=== PATIENT | female | born 1960 | race Caucasian/White ===

== ENCOUNTER 2016-06-09 09:01 | Outpatient (RCR) | payer OTHER | END 2016-09-02 | LOC: WSOH | DX: M54.5 Low back pain (principal); M25.551 Pain in right hip; X50.0XXA Overexertion from strenuous movement or load, initial encounter; Y99.0 Civilian activity done for income or pay ==

== ENCOUNTER 2016-10-15 13:03 | Outpatient (RCR) | payer OTHER | END 2016-11-04 11:22 | LOC: WSOH 13:03 | DX: M25.551 Pain in right hip (principal); X50.0XXA Overexertion from strenuous movement or load, initial encounter; Y99.0 Civilian activity done for income or pay ==